=== PATIENT | male | born 1950 | race African-American/Black ===

== ENCOUNTER 2016-07-28 04:41 | Inpatient (IN) | payer OTHER ==
[~2016-07-28] VITALS: Ht 175.3 cm; Wt 69.5 kg
[2016-07-28] VITALS (7 sets, daily range): BP systolic 128–182; BP diastolic 70–84
[~2016-07-28 04:41] MED LIST: HYDROCODON-ACE1 EAC7 PO; VALTREX1000 MG PO
[2016-07-28 05:28] LABS: CHLORIDE 107 mEq/L (99-109); POTASSIUM 4.1 mEq/L (3.7-5.4); SODIUM 137 mEq/L (136-147)
[2016-07-28 05:29] LABS: GLUCOSE 116 mg/dL (70-99)
[2016-07-28 05:31] LABS: ANION GAP 7 MEQ/L (2-14)
[2016-07-28 05:33] LABS: GFR ESTIMATE (CALCULATED) > 59 mL/min/
[2016-07-28 05:34] LABS: UREA NITROGEN (BUN) 27 mg/dL (9-23)
[2016-07-28 05:45] LABS: HEMATOCRIT 22.5 % (38.0-50.0); IMM.PLATELET FRACTION 11.9 (1-7); MCH 28.4 PG (29.0-34.0); MCHC 33.8 G/DL (30.0-36.0); NRBC (%) 2.2 /100 WBC (0-0); RBC DIS.WIDTH-CV 13.8 % (11.8-14.6); RBC DIS.WIDTH-SD 42.2 % (39-53); RED BLOOD COUNT 2.68 M/uL (4.00-5.50); WHITE BLOOD COUNT 3.6 K/uL (4.1-10.2)
[2016-07-28 07:47] LABS: PLAT.SUFFICIENCY VERY DECREASED
[2016-07-28] MEDS ORDERED: VIREAD300 MG PO (12:14)
[2016-07-28] MEDS ORDERED: ISENTRESS400 MG PO (12:14)
[2016-07-28] MEDS ORDERED: LOPRESSOR100 M1 PO (12:15)
[2016-07-28] MEDS ORDERED: NORVIR100 M1 PO (12:15)
[2016-07-28] MEDS ORDERED: PREZISTA800 MG PO (12:15)
[2016-07-28 13:24] LABS: PLATELET COUNT 6 K/uL (156-360)
[2016-07-28 14:29] LABS: INTER. NORMALIZED RATIO 1.1; PROTHROMBIN TIME 11.4 (9.2-11.2); PTT 24.5 (25-32)
[2016-07-28 14:33] LABS: TOTAL BILIRUBIN 0.6 mg/dL (0.0-1.0)
[2016-07-28 14:34] LABS: ALKALINE PHOSPHATASE 63 IU/L (3-129)
[2016-07-28 14:37] LABS: DIRECT BILIRUBIN 0.3 mg/dL (0.0-0.3); MCH 28.3 PG (29.0-34.0); MCV 85.5 FL (86-99); RBC DIS.WIDTH-SD 43.7 % (39-53); RED BLOOD COUNT 2.69 M/uL (4.00-5.50)
[2016-07-28 15:00] LABS: FIBRINOGEN 525 MG/DL (160-450)
[2016-07-28 15:27] LABS: LACTATE DEHYDROGENASE 489 IU/L (20-246)
[2016-07-28 15:40] LABS: PLATELET COUNT 5 K/uL (156-360)
[2016-07-29] VITALS (13 sets, daily range): BP systolic 123–165; BP diastolic 74–89
[2016-07-29 08:18] LABS: ABS NEUTROPHIL COUNT 1.1; ATYPICAL LYMPHOCYTE 3.5 %; BAND NEUTROPHILS 0.9 % (0-8.0); EOSINOPHIL ABS CT 0; IMM.PLATELET FRACTION 10.7 (1-7); INSTRUMENT ABS NEUTROPHIL CT 0.6 K/uL; LYMPHOCYTES 44.7 % (15.0-45.0); NUCLEATED RBC'S 0.9; PLAT.SUFFICIENCY VERY DECREASED; SCHISTOCYTES 1+; SEG.NEUTROPHILS 36.9 % (46.0-76.0); SMUDGE CELLS 7.9
[2016-07-29 08:52] LABS: INTERNAL CONTROL VALID? YES
[2016-07-29 09:02] LABS: HEMATOCRIT 20.7 % (38.0-50.0); MCH 28.9 PG (29.0-34.0); MCHC 33.8 G/DL (30.0-36.0); MCV 85.5 FL (86-99); MEAN PLAT.VOLUME 9.9 uM^3 (9.0-12.4); NRBC (%) 1.9 /100 WBC (0-0); PLATELET COUNT 78 K/uL (156-360); RBC DIS.WIDTH-CV 13.9 % (11.8-14.6); RBC DIS.WIDTH-SD 43.7 % (39-53); RED BLOOD COUNT 2.42 M/uL (4.00-5.50); WHITE BLOOD COUNT 3.2 K/uL (4.1-10.2)
[2016-07-29 09:24] LABS: ALKALINE PHOSPHATASE 60 IU/L (3-129); ANION GAP 10 MEQ/L (2-14); CHLORIDE 103 MEQ/L (99-109); GFR ESTIMATE (CALCULATED) > 59 mL/min/; GLUCOSE 104 mg/dL (70-99); POTASSIUM 3.7 MEQ/L (3.7-5.4); SAMPLE HEMOLYSIS CHECK 0; SAMPLE ICTERIC CHECK 0; SAMPLE LIPEMIA CHECK 0; SODIUM 136 MEQ/L (136-147); TOTAL BILIRUBIN 0.9 MG/DL (0.0-1.0); UREA NITROGEN (BUN) 14 mg/dL (9-23)
[2016-07-29 09:55] LABS: IRON 104 MCG/DL (35-150)
[2016-07-29 10:10] LABS: FERRITIN 323 NG/ML (22-322)
[2016-07-29 11:31] LABS: INTERNAL CONTROL VALID? YES
[2016-07-29 13:27] LABS: HEMATOCRIT 23.2 % (38.0-50.0); MCV 85.3 FL (86-99)
[2016-07-29 17:56] LABS: HEMATOCRIT 26.3 % (38.0-50.0); MCH 28.3 PG (29.0-34.0); MCHC 33.1 G/DL (30.0-36.0); MCV 85.7 FL (86-99); MEAN PLAT.VOLUME 9.9 uM^3 (9.0-12.4); NRBC (%) 2.5 /100 WBC (0-0); PLATELET COUNT 82 K/uL (156-360); RBC DIS.WIDTH-CV 13.7 % (11.8-14.6); RBC DIS.WIDTH-SD 42.9 % (39-53); WHITE BLOOD COUNT 3.6 K/uL (4.1-10.2)
[2016-07-29 17:59] LABS: RED BLOOD COUNT 3.07 M/uL (4.00-5.50)
[2016-07-29 22:04] LABS: HEMATOCRIT 28.2 % (38.0-50.0); MCV 82.7 FL (86-99)
[2016-07-30 04:03] VITALS: BP 173/88
[2016-07-30 07:41] VITALS: BP 162/96
[2016-07-30 13:12] LABS: Flow Clinical Information NOT PROVIDED (()); Flow Number of Markers 24 (()); Flow Spec Viability 94 % (()); Flow Specimen Type PERIPHERAL BLOOD (())
[2016-07-30 15:11] VITALS: BP 144/64
[2016-07-30 19:55] VITALS: BP 128/67
[2016-07-30 23:49] VITALS: BP 140/79
[2016-07-31 04:24] VITALS: BP 131/74
[2016-07-31 07:35] LABS: ANION GAP 8 MEQ/L (2-14); CHLORIDE 103 MEQ/L (99-109); GFR ESTIMATE (CALCULATED) > 59 mL/min/; GLUCOSE 94 mg/dL (70-99); POTASSIUM 4.1 MEQ/L (3.7-5.4); SAMPLE HEMOLYSIS CHECK 0; SAMPLE ICTERIC CHECK 0; SAMPLE LIPEMIA CHECK 0; SODIUM 134 MEQ/L (136-147); UREA NITROGEN (BUN) 16 mg/dL (9-23)
[2016-07-31 07:36] VITALS: BP 171/87
[2016-07-31 07:48] LABS: HEMATOCRIT 27.6 % (38.0-50.0); MCH 27.9 PG (29.0-34.0); MCV 84.7 FL (86-99); NRBC (%) 2.8 /100 WBC (0-0); RBC DIS.WIDTH-CV 14.6 % (11.8-14.6); RBC DIS.WIDTH-SD 45.3 % (39-53); RED BLOOD COUNT 3.26 M/uL (4.00-5.50); WHITE BLOOD COUNT 3.2 K/uL (4.1-10.2)
[2016-07-31 08:19] LABS: IMM.PLATELET FRACTION 1.5 (1-7); MEAN PLAT.VOLUME 9.5 uM^3 (9.0-12.4); PLAT.SUFFICIENCY DECREASED
[2016-07-31 08:22] LABS: PLATELET COUNT 48 K/uL (156-360)
[2016-07-31 11:06] VITALS: BP 149/78
[2016-07-31 15:08] VITALS: BP 159/89
[2016-07-31 19:41] VITALS: BP 164/83
[2016-07-31 23:15] VITALS: BP 166/94
[2016-08-01 04:00] VITALS: BP 166/95
[2016-08-01 07:43] VITALS: BP 163/91
[2016-08-01 09:33] LABS: HEMATOCRIT 27.5 % (38.0-50.0); MCH 28.3 PG (29.0-34.0); MCHC 34.2 G/DL (30.0-36.0); MCV 82.8 FL (86-99); NRBC (%) 3.5 /100 WBC (0-0); RBC DIS.WIDTH-CV 14.2 % (11.8-14.6); RBC DIS.WIDTH-SD 43.1 % (39-53); RED BLOOD COUNT 3.32 M/uL (4.00-5.50); WHITE BLOOD COUNT 3.5 K/uL (4.1-10.2)
[2016-08-01 09:34] LABS: CHLORIDE 104 mEq/L (99-109); POTASSIUM 3.8 mEq/L (3.7-5.4); SODIUM 135 mEq/L (136-147)
[2016-08-01 09:35] LABS: GLUCOSE 98 mg/dL (70-99)
[2016-08-01 09:37] LABS: ANION GAP 10 MEQ/L (2-14)
[2016-08-01 09:39] LABS: GFR ESTIMATE (CALCULATED) > 59 mL/min/
[2016-08-01 09:40] LABS: UREA NITROGEN (BUN) 18 mg/dL (9-23)
[2016-08-01 10:26] LABS: ABS NEUTROPHIL COUNT 0.9; ATYPICAL LYMPHOCYTE 2.7 %; BASOPHILS 0.9 %; EOSINOPHIL ABS CT 0; EOSINOPHILS 0.9 % (0-5.0); HEMATOLOGY COMMENT 1 SN; IMM.PLATELET FRACTION 1.9 (1-7); INSTRUMENT ABS NEUTROPHIL CT 0.6 K/uL; LYMPHOCYTES 43.7 % (15.0-45.0); MEAN PLAT.VOLUME 9.9 uM^3 (9.0-12.4); NUCLEATED RBC'S 6.4; PLAT.SUFFICIENCY DECREASED; PLATELET COUNT 31 K/uL (156-360); POIKILOCYTOSIS 1+; SEG.NEUTROPHILS 25.5 % (46.0-76.0); SMUDGE CELLS 12.7
[2016-08-01 11:16] VITALS: BP 171/79
[2016-08-01 15:25] VITALS: BP 136/95
[2016-08-01 20:00] VITALS: BP 183/88
[2016-08-01 23:51] VITALS: BP 173/97
[2016-08-02] VITALS (8 sets, daily range): BP systolic 147–183; BP diastolic 77–96
[2016-08-02 05:33] LABS: HEMATOCRIT 27.8 % (38.0-50.0); MCH 28.4 PG (29.0-34.0); MCHC 34.2 G/DL (30.0-36.0); NRBC (%) 3.9 /100 WBC (0-0); RBC DIS.WIDTH-CV 14.3 % (11.8-14.6); RED BLOOD COUNT 3.35 M/uL (4.00-5.50); WHITE BLOOD COUNT 3.4 K/uL (4.1-10.2)
[2016-08-02 07:02] LABS: ABS NEUTROPHIL COUNT 0.7; BASOPHILS 0.9 %; EOSINOPHIL ABS CT 0; INSTRUMENT ABS NEUTROPHIL CT 0.5 K/uL; LYMPHOCYTES 49.6 % (15.0-45.0); NUCLEATED RBC'S 0.9; PLAT.SUFFICIENCY DECREASED; POIKILOCYTOSIS 1+; SEG.NEUTROPHILS 19.8 % (46.0-76.0); SMUDGE CELLS 6.3
[2016-08-02 07:08] LABS: ANION GAP 12 MEQ/L (2-14); CHLORIDE 102 MEQ/L (99-109); GFR ESTIMATE (CALCULATED) > 59 mL/min/; GLUCOSE 100 mg/dL (70-99); POTASSIUM 3.9 MEQ/L (3.7-5.4); SAMPLE HEMOLYSIS CHECK 0; SAMPLE ICTERIC CHECK 0; SAMPLE LIPEMIA CHECK 0; SODIUM 133 MEQ/L (136-147); UREA NITROGEN (BUN) 16 mg/dL (9-23)
[2016-08-02 12:38] LABS: MEAN PLAT.VOLUME 9.8 uM^3 (9.0-12.4); PLATELET COUNT 21 K/uL (156-360)
[2016-08-03 00:19] VITALS: BP 141/80
[2016-08-03 00:23] VITALS: BP 141/83
[2016-08-03 00:31] VITALS: BP 154/88
[2016-08-03 02:34] VITALS: BP 166/84
== END 2016-08-03 02:19 | disposition short-term general hospital (02) | DRG 813 ==
LOC: EME 04:41 → EDOF 12:21 → 5SOUTH 12:21
PROVIDERS: Family Medicine; Hospitalist; Internal Medicine
PROC: 30233R1 Transfusion of Nonautologous Platelets into Peripheral Vein, Percutaneous Approach (ICD-10-PCS; principal; 2016-07-28)
DX: D69.6 Thrombocytopenia, unspecified (principal); D61.818 Other pancytopenia; J18.9 Pneumonia, unspecified organism; J44.1 Chronic obstructive pulmonary disease with (acute) exacerbation; I27.82 Chronic pulmonary embolism; R04.2 Hemoptysis; R09.02 Hypoxemia; Z21 Asymptomatic human immunodeficiency virus [HIV] infection status; D50.9 Iron deficiency anemia, unspecified; I10 Essential (primary) hypertension; D72.819 Decreased white blood cell count, unspecified; Z86.711 Personal history of pulmonary embolism; Z87.891 Personal history of nicotine dependence
CPT/HCPCS: 71020; 71275; 77012; 80048; 80053; 80076; 82272; 82607; 82728; 82746; 83010 90; 83540; 83615; 84466; 85014; 85018; 85025; 85027; 85049; 85384; 85610; 85730; 86747 90; 86900; 86901; 86920; 87040; 87070; 87205; 87449; 88184 90; 88185 90; 88189 90; 94010; 94640; 94640 76; 94799; 99202; 99281; 99285; J0360; J0456; J0696; J1200; J1956; J2405; J3010; J7030; J7050; P9016; P9035